=== PATIENT | female | born 2000 | race Caucasian/White ===

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

== ENCOUNTER 2020-05-24 22:39 | Observation (INO) | payer MEDICAID ==
[2020-05-25] MEDS ORDERED: PREN-182 MT (03:41)
[2020-05-25] MEDS ORDERED: PREN-176 PO (03:42)
== END 2020-05-25 00:30 | disposition home or self-care (01) ==
LOC: ER 22:39 → 8 EST LDRP 23:15
PROVIDERS: ADMIT Obstetrics & Gynecology; ATTEND Obstetrics & Gynecology
DX: O9A.212 Injury, poisoning and certain other consequences of external causes complicating pregnancy, second trimester (principal); O26.892 Other specified pregnancy related conditions, second trimester; R10.11 Right upper quadrant pain; Z3A.25 25 weeks gestation of pregnancy; V47.6XXA Car passenger injured in collision with fixed or stationary object in traffic accident, initial encounter; Y93.89 Activity, other specified; Y92.488 Other paved roadways as the place of occurrence of the external cause
CPT/HCPCS: 36415; 59025; 76805; 86850; 86900; 86901; 93005; G0378; 99281

== ENCOUNTER 2020-09-16 20:09 | Emergency (ER) | payer MEDICAID ==
[~2020-09-16] VITALS: Ht 165.1 cm; Wt 106.1 kg
[~2020-09-16 20:09] MED LIST changes: +FERR325T23 PO; +IBUP-2030 PO; +PREN-176 PO; +PREN-182 MT
[2020-09-16] MEDS ORDERED: SODIUM CHLORIDE 0.9% 1,000 ML IV ONE (21:15)
[2020-09-16 22:21] LABS: BASOPHILS % 0.5 % (0.0-2.0); EOSINOPHILS % 0.2 % (0.0-5.0); HEMOGLOBIN. 7.1 g/dL (12.0-16.0); LYMPHOCYTES % 18.4 % (20.0-50.0); MEAN CORPUSCULAR HEMOGLOBIN 24.7 pg (28.0-32.0); MEAN PLATELET VOLUME 11.1 fl (7.4-10.4); MONOCYTES % 6.3 % (2.0-8.0); NEUTROPHILS % 74.6 % (40.0-76.0); PLATELET 156 x1000/uL (130-400); RED BLOOD CELL COUNT 2.89 mill/uL (4.2-5.4); RED CELL DISTRIBUTION WIDTH 18.6 % (11.6-14.6)
[2020-09-16 22:28] LABS: CHLORIDE 105 mEq/L (98-107)
[2020-09-16 22:41] LABS: B-HCG QUANTITATIVE 106 mIU/mL (<3)
[2020-09-16] MEDS ORDERED: IBUPROFEN 400MG TABLET PO NR (23:30)
[2020-09-17 00:56] VITALS: BP 113/70
== END 2020-09-17 01:05 | disposition home or self-care (01) ==
LOC: ER 20:09
DX: N93.9 Abnormal uterine and vaginal bleeding, unspecified (principal); R42 Dizziness and giddiness; J45.909 Unspecified asthma, uncomplicated; Z90.49 Acquired absence of other specified parts of digestive tract
CPT/HCPCS: 36415; 76856; 80053; 84702; 85025; 86850; 86900; 86901; 96360; 99284; J7030

== ENCOUNTER 2021-07-18 21:58 | Emergency (ER) | payer MEDICAID ==
[~2021-07-18] VITALS: Ht 165.1 cm; Wt 99.7 kg
[2021-07-19 00:06] VITALS: BP 122/64
== END 2021-07-19 00:09 | disposition home or self-care (01) ==
LOC: ER 22:28
DX: B34.8 Other viral infections of unspecified site (principal); Z20.822 Contact with and (suspected) exposure to COVID-19; J45.909 Unspecified asthma, uncomplicated; Z79.899 Other long term (current) drug therapy
CPT/HCPCS: 87426; 99283

== ENCOUNTER 2021-09-10 14:51 | Emergency (ER) | payer MEDICAID ==
[~2021-09-10] VITALS: Ht 167.6 cm; Wt 101.0 kg
[2021-09-10 16:50] LABS: BASOPHILS % 0.3 % (0.0-2.0); EOSINOPHILS % 0.3 % (0.0-5.0); HEMATOCRIT. 33.7 % (36.0-48.0); HEMOGLOBIN. 11.1 g/dL (12.0-16.0); LYMPHOCYTES % 9.9 % (20.0-50.0); MEAN CORPUSCULAR VOLUME 73.1 fL (81.0-99.0); MEAN PLATELET VOLUME 11.8 fl (7.4-10.4); MONOCYTES % 8.7 % (2.0-8.0); NEUTROPHILS % 80.8 % (40.0-76.0); PLATELET 181 x1000/uL (130-400); RED BLOOD CELL COUNT 4.61 mill/uL (4.2-5.4); RED CELL DISTRIBUTION WIDTH 19.9 % (11.6-14.6)
[2021-09-10 16:54] LABS: CHLORIDE 107 mEq/L (98-107)
[2021-09-10] MEDS ORDERED: KETOROLAC 30MG/ML VIAL IV STA (17:02)
[2021-09-10] MEDS ORDERED: ONDANSETRON HCL 4MG/2ML INJ IV STA (17:02)
[2021-09-10] MEDS ORDERED: LACTATED RINGERS 1,000 ML IV STA (17:02)
[2021-09-10] MEDS ORDERED: MAGNESIUM/ALUMINUM HYDROXIDE/SIMETHICONE 30ML UDC PO STA ×2 (17:02)
[2021-09-10 17:14] LABS: HCG SCREEN NEGATIVE
[2021-09-10] MEDS ORDERED: POTASSIUM CHLORIDE 20MEQ TABLET SR PO ONE (17:15)
[2021-09-10 19:24] LABS: CLARITY URINE CLOUDY (CLEAR); COLOR URINE DARK YELLOW (YELLOW); KETONES URINE 2+ (NEGATIVE); LEUKOCYTE ESTERASE URINE TRACE (NEGATIVE); NITRITE URINE NEGATIVE (NEGATIVE); OCCULT BLOOD URINE NEGATIVE (NEGATIVE); PROTEIN URINE 1+ (NEGATIVE); SPECIFIC GRAVITY URINE 1.035 (1.005-1.030)
[2021-09-10] MEDS ORDERED: POTA-79 MT (19:31)
[2021-09-10] MEDS ORDERED: NAP5EC MT (19:31)
[2021-09-10] MEDS ORDERED: ONDA4TAB5 MT (19:31)
[2021-09-10 20:20] VITALS: BP 123/68
== END 2021-09-10 20:20 | disposition home or self-care (01) ==
LOC: ER 15:01
DX: A08.4 Viral intestinal infection, unspecified (principal); D53.9 Nutritional anemia, unspecified; E87.6 Hypokalemia; J45.909 Unspecified asthma, uncomplicated; Z90.49 Acquired absence of other specified parts of digestive tract
CPT/HCPCS: 36415; 80053; 81003; 83690; 83735; 84703; 85025; 96361; 96374; 99283; J1885; J2405; J7120

== ENCOUNTER 2024-01-01 11:10 | Emergency (ER) | payer MEDICAID ==
[~2024-01-01] VITALS: Ht 165.1 cm; Wt 104.3 kg
[~2024-01-01 11:10] MED LIST changes: -ACET-2081; +ACET-2084; +NAP5EC MT; +ONDA4TAB5 MT; +POTA-354 MT
[2024-01-01 11:26] VITALS: O2SAT 94
[2024-01-01 11:52] LABS: CLARITY URINE TURBID (CLEAR); COLOR URINE YELLOW (YELLOW); GLUCOSE URINE NEGATIVE (NEGATIVE); KETONES URINE NEGATIVE (NEGATIVE); LEUKOCYTE ESTERASE URINE 3+ (NEGATIVE); NITRITE URINE NEGATIVE (NEGATIVE); OCCULT BLOOD URINE 3+ (NEGATIVE); PROTEIN URINE TRACE (NEGATIVE); SPECIFIC GRAVITY URINE 1.014 (1.005-1.030); UROBILINOGEN URINE 0.2 E.U./dL (0.2-1.0)
[2024-01-01 12:14] LABS: BACTERIA URINE 1+; RBC URINE 50-100 /hpf (0-2); SQUAMOUS EPITHELIAL CELL URINE FEW /lpf (RARE/1+); WBC URINE TNTC /hpf (0-2)
[2024-01-01] MEDS ORDERED: CEFP100T8 MT (14:55)
[2024-01-01 16:12] VITALS: BP 119/68; PULSE 68; RESP 16; TEMP 98.3
== END 2024-01-01 16:11 | disposition home or self-care (01) ==
LOC: ER 11:18
DX: N39.0 Urinary tract infection, site not specified (principal); J45.909 Unspecified asthma, uncomplicated; Z79.899 Other long term (current) drug therapy; Z90.49 Acquired absence of other specified parts of digestive tract
CPT/HCPCS: 81003; 81025; 87086; 99283; Z7610

== ENCOUNTER 2024-04-08 18:40 | Emergency (ER) | payer MEDICAID ==
[~2024-04-08] VITALS: Ht 165.1 cm; Wt 105.0 kg
[~2024-04-08 18:40] MED LIST changes: +OMEP20TA23 MT; +SUCR1TAB30 MT
[2024-04-08 18:43] VITALS: TEMP 98.7; O2SAT 99
[2024-04-08 21:46] LABS: BASOPHILS % 0.3 % (0.0-2.0); EOSINOPHILS % 0.4 % (0.0-5.0); HEMATOCRIT. 39.7 % (36.0-48.0); LYMPHOCYTES % 21.6 % (20.0-50.0); MEAN CORPUSCULAR HEMOGLOBIN 27.3 pg (28.0-32.0); MEAN CORPUSCULAR HGB CONC 32.7 g/dL (31.0-37.0); MEAN CORPUSCULAR VOLUME 83.4 fL (81.0-99.0); MEAN PLATELET VOLUME 11.6 fl (7.4-10.4); MONOCYTES % 5.6 % (2.0-8.0); NEUTROPHILS % 72.1 % (40.0-76.0); PLATELET 192 x1000/uL (130-400); RED BLOOD CELL COUNT 4.76 mill/uL (4.2-5.4); RED CELL DISTRIBUTION WIDTH 16.7 % (11.6-14.6); WHITE BLOOD COUNT 10.4 x1000/uL (4.5-11.0)
[2024-04-08 21:47] LABS: CHLORIDE 106 mEq/L (98-107); POTASSIUM 3.9 mEq/L (3.5-5.1); SODIUM 139 mEq/L (136-145)
[2024-04-08 21:48] LABS: CALCIUM 9.9 mg/dL (8.7-10.4); CARBON DIOXIDE 25 mEq/L (21-32)
[2024-04-08 21:51] LABS: PROTHROMBIN TIME 11.1 sec (9.6-11.0)
[2024-04-08 21:53] LABS: CREATININE 0.7 mg/dL (0.6-1.0); GLUCOSE 95 mg/dL (70-105); UREA NITROGEN BLOOD 8 mg/dL (9-23)
[2024-04-08 21:55] LABS: HCG SCREEN NEGATIVE; TROPONIN I HIGH SENSITIVITY 7 ng/L (3.0-34)
[2024-04-08 22:35] VITALS: BP 126/67; PULSE 85; RESP 18; O2SAT 99
== END 2024-04-08 22:35 | disposition home or self-care (01) ==
LOC: ER 18:40
DX: R07.89 Other chest pain (principal); J45.909 Unspecified asthma, uncomplicated; Z79.899 Other long term (current) drug therapy
CPT/HCPCS: 36415; 71045; 80048; 84484; 84703; 85025; 93005; 99285

== ENCOUNTER 2024-06-19 19:18 | Emergency (ER) | payer MEDICAID ==
[~2024-06-19] VITALS: Ht 165.1 cm; Wt 100.0 kg
[~2024-06-19 19:18] MED LIST changes: -NAP5EC MT; +NAPR-1495 MT
[2024-06-19 19:36] VITALS: O2SAT 100
[2024-06-20 01:59] LABS: CLARITY URINE CLOUDY (CLEAR); COLOR URINE DARK YELLOW (YELLOW); GLUCOSE URINE NEGATIVE (NEGATIVE); KETONES URINE 1+ (NEGATIVE); LEUKOCYTE ESTERASE URINE NEGATIVE (NEGATIVE); NITRITE URINE NEGATIVE (NEGATIVE); OCCULT BLOOD URINE 3+ (NEGATIVE); PH URINE 5.5 (4.5-8.0); PROTEIN URINE 1+ (NEGATIVE); SPECIFIC GRAVITY URINE 1.028 (1.005-1.030)
[2024-06-20 02:24] LABS: RBC URINE TNTC /hpf (0-2); WBC URINE NONE SEEN /hpf (0-2)
[2024-06-20 02:25] LABS: BACTERIA URINE 1+; SQUAMOUS EPITHELIAL CELL URINE 1+ /lpf (RARE/1+)
[2024-06-20] MEDS ORDERED: CEPH500T MT (03:02)
[2024-06-20 03:28] VITALS: BP 125/79; PULSE 72; RESP 19; TEMP 37.11408; O2SAT 100
== END 2024-06-20 03:29 | disposition home or self-care (01) ==
LOC: ER 19:18
DX: R33.9 Retention of urine, unspecified (principal); Z79.899 Other long term (current) drug therapy; Z90.49 Acquired absence of other specified parts of digestive tract
CPT/HCPCS: 76857; 81003; 81025; 99284

== ENCOUNTER 2024-09-08 23:42 | Emergency (ER) | payer MEDICAID ==
[~2024-09-08] VITALS: Ht 165.1 cm; Wt 104.0 kg
[~2024-09-08 23:42] MED LIST changes: +CEPH500T MT
[2024-09-08 23:57] VITALS: TEMP 36.8; O2SAT 97
[2024-09-09] MEDS: ACETAMINOPHEN 325MG TABLET PO ONE (01:11)
[2024-09-09] MEDS ORDERED: NAPR-1176 MT (02:16)
[2024-09-09 02:42] VITALS: BP 133/71; PULSE 79; RESP 17; O2SAT 100
== END 2024-09-09 02:42 | disposition home or self-care (01) ==
LOC: ER 23:42
DX: M79.641 Pain in right hand (principal); Z79.1 Long term (current) use of non-steroidal anti-inflammatories (NSAID); Z79.899 Other long term (current) drug therapy; Z98.890 Other specified postprocedural states
CPT/HCPCS: 29125; 73130; 99283